=== PATIENT | female | born 1960 | race Caucasian/White ===

== ENCOUNTER 2021-02-19 07:42 | Observation (INO) | payer OTHER ==
[2021-02-19] MEDS ORDERED: methylPREDNISolone NA SUCC 125 MG/2 ML VIAL IVPB ONE (08:07)
[2021-02-19] MEDS ORDERED: ONDANSETRON 4 MG/2 ML VIAL IVPUSH ONE (08:07)
[2021-02-19] MEDS ORDERED: FAMOTIDINE 20 MG/50 ML IVPB 50 ML IVPB ONE (08:07)
[2021-02-19] MEDS ORDERED: FAMOTIDINE 20 MG/50 ML IVPB 20 MG/50 ML MG IVPB ONE (08:51)
[2021-02-19] MEDS ORDERED: EPINEPHrine/PF 1 MG/1 ML (1:1,000) AMPULE ONE ×2 (09:52→15:24)
[2021-02-19] MEDS ORDERED: EPINEPHrine/PF 1 MG/1 ML (1:1,000) AMPULE IM ONE ×2 (09:53→15:23)
[2021-02-19] MEDS: EPINEPHrine 1:1,000 0.3 MG/0.3 ML SYR IM ONE ×2 (10:00→17:50)
[2021-02-19 10:59] VITALS: BMI 38.6
[2021-02-19] MEDS ORDERED: INSULIN (NOVOLOG) ASPART 100 UNITS/ML 10ML VIAL SQ ONE (18:00)
[2021-02-19] MEDS ORDERED: SODIUM CHLORIDE 0.9% 1000 ML INFUS.BAG IV ONE (18:02)
[2021-02-19] MEDS ORDERED: ONDANSETRON 4 MG/2 ML VIAL ONE (19:24)
[2021-02-19] MEDS ORDERED: INSULIN REGULAR HUMAN 100 UNITS/ML *VIAL ONE ×2 (21:07→23:23)
[2021-02-19] MEDS ORDERED: INSULIN REGULAR HUMAN 100 UNITS/ML *VIAL SQ ONE ×2 (21:09→23:20)
[2021-02-19] MEDS ORDERED: GABAPENTIN 300 MG CAPSULE ONE (21:14)
[2021-02-19] MEDS ORDERED: GABAPENTIN 300 MG CAPSULE PO ONE (21:14)
[2021-02-19 22:50] LABS: BASO % 2.3 % (0-2.0); EOS % 0.1 % (0-4.5); HEMOGLOBIN 14.4 GM/dl (10.7-15.3); LYMPH % 10.3 % (8-40); MCH 27.2 pg (25.7-33.7); MCHC 32.7 g/dl (32.0-36.0); MEAN CELL VOLUME 83.2 fl (80-96); MEAN PLT VOLUME 10.2 fl (7.5-11.1); MONO % 1.1 % (3.8-10.2); NEUT % 86.2 % (42.8-82.8); PLATELET COUNT 256 10^3/uL (134-434); RBC 5.28 M/mm3 (3.60-5.2); RDW 15.2 % (11.6-15.6); WHITE BLOOD COUNT 13.4 K/mm3 (4.0-10.8)
[2021-02-19 23:09] LABS: BILIRUBIN,TOTAL 0.3 mg/dl (0.2-1); CALCIUM 9.4 mg/dl (8.5-10); CREATININE 0.9 mg/dl (0.55-1.3); TOT PROT 7.8 g/dl (6.4-8.2)
[2021-02-20] MEDS ORDERED: ACETAMINOPHEN 1000 MG/100 ML VIAL (NON FORMULARY) IVPB ONE (04:57)
[2021-02-20] MEDS ORDERED: INSULIN SLIDING SCALE (NOVOLOG) 1 VIAL SQ SCH (05:15)
[2021-02-20] MEDS: INSULIN SLIDING SCALE (NOVOLOG) 1 VIAL SQ SCH ×2 (12:08→13:58)
[2021-02-20] MEDS ORDERED: predniSONE 20 MG TABLET (UD) PO ONE (12:30)
[2021-02-20] MEDS ORDERED: ONDANSETRON 4 MG/2 ML VIAL IM ONE (12:34)
[2021-02-20] MEDS ORDERED: ONDANSETRON 4 MG/2 ML VIAL IVPUSH ONE (12:39)
[2021-02-20] MEDS ORDERED: ACETAMINOPHEN 325 MG TABLET (FP) PO ONE (12:45)
[2021-02-20] MEDS ORDERED: GABAPENTIN 300 MG CAPSULE PO SCH (14:00)
[2021-02-20 16:27] VITALS: BP 125/70; PULSE 79; TEMP 98.8
== END 2021-02-20 17:23 | disposition home or self-care (01) ==
LOC: FER 07:42 → EDBD 07:42 → J4W 15:41 → UNDOADMOB 02-20 01:45 → INTOOBSV 02-20 01:45
PROVIDERS: ADMIT Internal Medicine; ATTEND Internal Medicine
PROC: 3E033NZ Introduction of Analgesics, Hypnotics, Sedatives into Peripheral Vein, Percutaneous Approach (ICD-10-PCS; principal; 2021-02-19)
PROC: 3E033GC Introduction of Other Therapeutic Substance into Peripheral Vein, Percutaneous Approach (ICD-10-PCS; 2021-02-19)
PROC: 3E013VG Introduction of Insulin into Subcutaneous Tissue, Percutaneous Approach (ICD-10-PCS; 2021-02-19)
PROC: 3E0337Z Introduction of Electrolytic and Water Balance Substance into Peripheral Vein, Percutaneous Approach (ICD-10-PCS; 2021-02-19)
DX: T78.3XXA Angioneurotic edema, initial encounter (principal); E11.9 Type 2 diabetes mellitus without complications; E05.00 Thyrotoxicosis with diffuse goiter without thyrotoxic crisis or storm; K21.9 Gastro-esophageal reflux disease without esophagitis; N21.0 Calculus in bladder; Z86.73 Personal history of transient ischemic attack (TIA), and cerebral infarction without residual deficits; F41.8 Other specified anxiety disorders; F31.9 Bipolar disorder, unspecified; G89.29 Other chronic pain; M81.0 Age-related osteoporosis without current pathological fracture; Z88.2 Allergy status to sulfonamides; Z91.013 Allergy to seafood; Z91.041 Radiographic dye allergy status; I48.91 Unspecified atrial fibrillation; E66.8 Other obesity; K50.90 Crohn's disease, unspecified, without complications; Z88.0 Allergy status to penicillin; Z68.38 Body mass index [BMI] 38.0-38.9, adult
CPT/HCPCS: 36415; 70450-TC; 71045-TC-FY; 73030-TC-LT-FY; 73070-TC-LT-FY; 73110-TC-LT-FY; 73130-TC-LT-FY; 73523-TC-FY; 73610-TC-LT-FY; 73630-TC-LT; 80053; 82962; 85025; 93005; 99285-25; C9803; G0378; J0131; U0003; U0005

== ENCOUNTER 2022-12-15 15:17 | Inpatient (IN) | payer SELFPAY ==
[2022-12-15] MEDS ORDERED: MAG HYDROX/AL HYDROX/SIMETH -MYLANTA- ORAL SUSPENSION PO ONE (15:51)
[2022-12-15] MEDS ORDERED: SODIUM CHLORIDE 0.9% 500 ML INFUS.BAG IV ONE (15:51)
[2022-12-15] MEDS ORDERED: FAMOTIDINE 20 MG/50 ML IVPB 20 MG/50 ML MG IVPB ONE ×2 (15:51→16:25)
[2022-12-15] MEDS ORDERED: MAG HYDROX/AL HYDROX/SIMETH 30 ML UNIT-DOSE CUP ONE (16:25)
[2022-12-15 17:16] LABS: HEMATOCRIT 45.8 % (32.4-45.2); HEMOGLOBIN 14.5 G/dL (10.7-15.3); MCH 27.4 pg (25.7-33.7); MCHC 31.7 g/dl (32.0-36.0); MEAN CELL VOLUME 86.4 fl (80-96); MEAN PLT VOLUME 10.4 fl (7.5-11.1); PLATELET COUNT 234.4 10^3/uL (134-434); RDW 16.8 % (11.6-15.6)
[2022-12-15 17:56] LABS: PLATELET ESTIMATE ADEQUATE
[2022-12-15] MEDS ORDERED: dilTIAZem HCL 50 MG/10 ML - 10 ML VIAL IVPUSH ONE ×2 (17:58→18:31)
[2022-12-15] MEDS ORDERED: dilTIAZem HCL 50 MG/10 ML - 10 ML VIAL ONE ×2 (18:02→18:35)
[2022-12-15 18:14] LABS: EPITHELIAL CELLS FEW /hpf
[2022-12-15 18:15] LABS: VENOUS BASE EXCESS -9.1 mmol/L (-2-2); VENOUS O2 SATURATION 50.6 % (70-80); VENOUS PCO2 39.5 mmHg (38-52); VENOUS PH 7.261 (7.310-7.410)
[2022-12-15 18:28] LABS: POTASSIUM 5.3 mmol/L (3.5-5.1)
[2022-12-15 18:31] LABS: ALBUMIN 3.6 g/dl (3.4-5.0); CALCIUM 9.1 mg/dL (8.5-10.1)
[2022-12-15 18:32] LABS: BLOOD UREA NITROGEN 25.2 mg/dL (7-18)
[2022-12-15 18:35] LABS: CREATININE 1.2 mg/dL (0.55-1.3)
[2022-12-15 18:36] LABS: TOT PROT 6.7 g/dl (6.4-8.2)
[2022-12-15] MEDS ORDERED: DOXYCYCLINE INJECTION 100 MG in DEXTROSE 5%-WATER 100 ML IVPB ONE (18:41)
[2022-12-15] MEDS ORDERED: dilTIAZem HCL 60 MG TABLET PO ONE (18:47)
[2022-12-15] MEDS ORDERED: dilTIAZem HCL 30 MG TABLET ONE (18:48)
[2022-12-15] MEDS ORDERED: DOXYCYCLINE HYCLATE 100 MG VIAL ONE (18:49)
[2022-12-15] MEDS ORDERED: SODIUM CHLORIDE 0.9% 1000 ML INFUS.BAG IV ONE (18:52)
[2022-12-15] MEDS ORDERED: ONDANSETRON 4 MG/2 ML VIAL IVPUSH ONE ×2 (19:09→23:07)
[2022-12-15] MEDS ORDERED: ONDANSETRON 4 MG/2 ML VIAL IVPUSH PRN (19:09)
[2022-12-15] MEDS ORDERED: INSULIN (NOVOLOG) ASPART 100 UNITS/ML 10ML VIAL SQ ONE (19:09)
[2022-12-15] MEDS ORDERED: ACETAMINOPHEN 325 MG TABLET (FP) PO PRN (19:09)
[2022-12-15] MEDS ORDERED: INSULIN (NOVOLOG) ASPART 100 UNITS/ML 10ML VIAL ONE ×2 (19:29→23:17)
[2022-12-15] MEDS ORDERED: LACTATED RINGERS SOLUTION 1,000 ML/1,000 ML INFUS.BAG IV SCH (19:45)
[2022-12-15] MEDS ORDERED: dilTIAZem HCL 60 MG TABLET PO SCH (22:00)
[2022-12-15] MEDS ORDERED: FAMOTIDINE 20 MG TABLET PO SCH (22:00)
[2022-12-15] MEDS ORDERED: INSULIN (LEVEMIR) 100 UNITS/ML UNITS SQ SCH (22:00)
[2022-12-15] MEDS ORDERED: INSULIN SLIDING SCALE (NOVOLOG) 1 VIAL SQ SCH (22:00)
[2022-12-15] MEDS ORDERED: APIXABAN 5 MG TABLET PO SCH (22:00)
[2022-12-15] MEDS ORDERED: ONDANSETRON 4 MG/2 ML VIAL ONE (23:17)
[2022-12-16] MEDS ORDERED: INSULIN (LEVEMIR) 100 UNITS/ML UNITS SQ SCH (00:20)
[2022-12-16] MEDS ORDERED: METOPROLOL TARTRATE 50 MG TABLET (FP) PO ONE (01:36)
[2022-12-16] MEDS ORDERED: ALPRAZolam 1 MG TABLET PO PRN (01:51)
[2022-12-16] MEDS ORDERED: AMIODARONE IN DEXTROSE,ISO-OSM 150 MG/100 ML BAG IVPB ONE (02:30)
[2022-12-16] MEDS ORDERED: AMIODARONE IN DEXTROSE,ISO-OSM 360 MG/200 ML BAG IV SCH ×2 (02:45→08:46)
[2022-12-16] MEDS ORDERED: DEXMEDETOMIDINE PREMIX 400 MCG/100 ML BAG IVPB SCH (02:45)
[2022-12-16] MEDS ORDERED: ROCURONIUM BROMIDE 50 MG/5 ML VIAL ONE (03:19)
[2022-12-16] MEDS ORDERED: ROCURONIUM BROMIDE 50 MG/5 ML VIAL IVPUSH ONE (03:23)
[2022-12-16] MEDS ORDERED: KETAMINE HCL 200 MG/20 ML VIAL IVPUSH ONE (03:23)
[2022-12-16] MEDS ORDERED: EPINEPHrine/PF 1 MG/1 ML (1:1,000) AMPULE ONE (04:12)
[2022-12-16] MEDS ORDERED: EPINEPHrine 1:10,000 (P-F SYR) 1 MG/10 ML DISP.SYRIN ONE (04:12)
[2022-12-16 05:19] VITALS: BMI 38.9
[2022-12-16 05:29] VITALS: TEMP 97.8
[2022-12-16 05:30] VITALS: BP 56/21; PULSE 62; RESP 18
[2022-12-16 06:27] LABS: LACTIC ACID 12.6 mmol/L (0.4-2.0)
[2022-12-16] MEDS ORDERED: MUPIROCIN 2% TOPICAL OINTMENT FOR DECOLONIZATION NS SCH (10:00)
[2022-12-16] MEDS ORDERED: METOPROLOL TARTRATE 50 MG TABLET (FP) PO SCH (10:00)
[2022-12-16] MEDS ORDERED: CHLORHEXIDINE GLUCONATE 4% CLEANSER FOR DECOLONIZATION TP SCH (22:00)
== END 2022-12-16 06:53 | disposition expired | DRG 190 ==
LOC: FER 15:17 → JICU 12-16 00:51
PROVIDERS: ADMIT Internal Medicine Pulmonary Disease; ATTEND Internal Medicine Pulmonary Disease
PROC: 0BH17EZ Insertion of Endotracheal Airway into Trachea, Via Natural or Artificial Opening (ICD-10-PCS; principal; 2022-12-16)
PROC: 5A1935Z Respiratory Ventilation, Less than 24 Consecutive Hours (ICD-10-PCS; 2022-12-16)
PROC: 05HM33Z Insertion of Infusion Device into Right Internal Jugular Vein, Percutaneous Approach (ICD-10-PCS; 2022-12-16)
DX: I21.9 Acute myocardial infarction, unspecified (principal); I48.91 Unspecified atrial fibrillation; K21.9 Gastro-esophageal reflux disease without esophagitis; M81.0 Age-related osteoporosis without current pathological fracture; I46.2 Cardiac arrest due to underlying cardiac condition; F41.8 Other specified anxiety disorders; F31.89 Other bipolar disorder; E11.65 Type 2 diabetes mellitus with hyperglycemia; E05.00 Thyrotoxicosis with diffuse goiter without thyrotoxic crisis or storm; K58.9 Irritable bowel syndrome, unspecified; R74.01 Elevation of levels of liver transaminase levels; R00.0 Tachycardia, unspecified; E66.9 Obesity, unspecified; Z68.39 Body mass index [BMI] 39.0-39.9, adult; E11.00 Type 2 diabetes mellitus with hyperosmolarity without nonketotic hyperglycemic-hyperosmolar coma (NKHHC); J98.11 Atelectasis; J90 Pleural effusion, not elsewhere classified; Z86.73 Personal history of transient ischemic attack (TIA), and cerebral infarction without residual deficits
CPT/HCPCS: 0241U-QW; 36415; 74176-TC; 80053; 81003; 81015; 82010; 82803; 82962; 83605; 83690; 84484; 85025; 87086; 93005; 94002; 99285-25; J0282